=== PATIENT | female | born 1985 ===

== ENCOUNTER 2018-08-07 21:21 | Emergency (ER) | payer SELFPAY ==
[2018-08-08] MEDS ORDERED: ACETAMINOPHEN 500 MG TAB ONE (00:59)
[2018-08-08] MEDS ORDERED: IBUPROFEN 400 MG TAB ONE (00:59)
--- NOTE | 2018-08-08 01:09 | ER ---
Nurse's Notes [facility] Name: Leon Bassett Age: 33 yrs Sex: Female : 1985 Arrival Date: 08/07/2018 Time: 21:26 Bed 5 Private MD: Diagnosis: Unspecified lump in breast-left Presentation: 08/07 22:34 Presenting complaint: Patient states: "I am having a large lump in my left breast that jd3 is painful.". Transition of care: patient was not received from another setting of care. Onset of symptoms was August 06, 2018. Risk Assessment: Do you want to hurt yourself or someone else? Patient reports no desire to harm self or others. Initial Sepsis Screen: Does the patient meet any 2 criteria? No. Patient's initial sepsis screen is negative. Does the patient have a suspected source of infection? No. Patient's initial sepsis screen is negative. Care prior to arrival: None. 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 - Social history:: Smoking status: Patient/guardian denies using tobacco. - Ebola Screening: : Patient negative for fever greater than or equal to 101.5 degrees Fahrenheit, and additional compatible Ebola Virus Disease symptoms. Screenin:38 Abuse screen: Denies threats or abuse. Nutritional screening: No deficits noted. jd3 Tuberculosis screening: No symptoms or risk factors identified. Fall Risk Ambulatory Aid- None/Bed Rest/Nurse Assist (0 pts). Gait- Normal/Bed Rest/Wheelchair (0 pts) Mental Status- Oriented to own ability (0 pts). Total Kaufman Fall Scale indicates No Risk (0-24 pts). Assessment: 23:48 General: Appears in no apparent distress. comfortable, Behavior is calm, cooperative, tl2 appropriate for age. General: lump felt on left breast. No redness or drainage. Pt reports pain on palpation. Pain: Complains of pain in left breast. Neuro: Level of Consciousness is awake, alert, obeys commands, Oriented to person, place, time, situation. Cardiovascular: Denies chest pain. Respiratory: Airway is patent Respiratory effort is even, unlabored, Respiratory pattern is regular, symmetrical. GI: No signs and/or symptoms were reported involving the gastrointestinal system. : No signs and/or symptoms were reported regarding the genitourinary system. Derm: Skin is pink, warm \\T\\ dry. 08/08 02:01 Reassessment: Patient appears in no apparent distress at this time. Patient and/or tl2 family updated on plan of care and expected duration. Pain level reassessed. Patient is alert, oriented x 3, equal unlabored respirations, skin warm/dry/pink. pt verbalized understanding of discharge instructions, need for follow up and prescription usage. Vital Signs: 08/07 22:35 BP 116 / 86; Pulse 88; Resp 16 S; Temp 97.5(TE); Pulse Ox 97% on R/A; Weight 109.77 kg jd3 (R); Height 5 ft. 6 in. (167.64 cm) (R); Pain 8/10; 23:50 BP 126 / 54; Pulse 89; Resp 18; Pulse Ox 96% on R/A; tl2 22:35 Body Mass Index 39.06 (109.77 kg, 167.64 cm) jd3 ED Course: 21:26 Patient arrived in ED. ss4 22:35 Triage completed. jd3 22:38 Arm band placed on. jd3 23:42 Rosana Ramirez, LIZETH is Primary Nurse. tl2 23:48 Patient has correct armband on for positive identification. Placed in gown. Bed in low tl2 position. Call light in reach. Side rails up X 1. 08/08 00:23 Eugene Alcantara PA is PHCP. cp 00:23 Anthony Lim MD is Attending Physician. cp 01:08 Avel Motta MD is Referral Physician. cp 02:01 No provider procedures requiring assistance completed. Patient did not have IV access tl2 during this emergency room visit. Administered Medications: 01:52 Drug: Ibuprofen 800 mg Route: PO; tl2 02:02 Follow up: Response: No adverse reaction; Medication administered at discharge. tl2 01:52 Drug: Tylenol 1000 mg Route: PO; tl2 02:02 Follow up: Response: No adverse reaction; Medication administered at discharge. tl2 Outcome: 01:08 Discharge ordered by . gisselle 02:01 Discharged to home ambulatory. tl2 02:01 Condition: stable 02:01 Discharge instructions given to patient, Instructed on discharge instructions, follow up and referral plans. medication usage, Demonstrated understanding of instructions, follow-up care, medications, Prescriptions given X 1. 02:02 Patient left the ED. tl2 Signatures: Eugene Alcantara PA PA cp Knox, Taylor RN RN tl2 Eder Peñaloza RN RN jd3 Elise Queen 4
--- NOTE | 2018-08-08 01:09 | EDPHYS ---
Physician Documentation [facility] Name: Leon Bassett Age: 33 yrs Sex: Female : 1985 Arrival Date: 08/07/2018 Time: 21:26 Bed 5 Private MD: ED Physician Anthony Lim HPI: 08/08 00:28 This 33 yrs old Female presents to ER via Ambulatory with complaints of Breast Lump. cp 00:28 The patient or guardian reports chest pain that is located primarily in the left breast.cp 00:28 The pain does not radiate. Associated signs and symptoms: Pertinent negatives: nipple cp discharge, fever. 00:28 The chest pain is described as aching. cp 00:28 Duration: The patient or guardian reports a single episode, that is still ongoing. cp Modifying factors: the symptoms are aggravated by palpation of area. Patient reports noticing lump in left breast yesterday. 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 - Social history:: Smoking status: Patient/guardian denies using tobacco. - Ebola Screening: : Patient negative for fever greater than or equal to 101.5 degrees Fahrenheit, and additional compatible Ebola Virus Disease symptoms. ROS: 08/08 00:35 Constitutional: Negative for body aches, chills, fever, poor PO intake. cp 00:35 Eyes: Negative for injury, pain, redness, and discharge. cp 00:35 ENT: Negative for drainage from ear(s), ear pain, sore throat, difficulty swallowing, difficulty handling secretions. 00:35 Cardiovascular: Negative for edema, palpitations. 00:35 Respiratory: Negative for cough, shortness of breath, wheezing. 00:35 : Negative for urinary symptoms. 00:35 Skin: Positive for of the left breast, pain, mass. 00:35 All other systems are negative. Exam: 00:40 Constitutional: The patient appears in no acute distress, alert, awake, cp non-diaphoretic, non-toxic, well developed, well nourished. 00:40 Head/Face: Normocephalic, atraumatic. cp 00:40 Eyes: Periorbital structures: appear normal, Conjunctiva: normal, no exudate, no injection, Sclera: no appreciated abnormality, Lids and lashes: appear normal, bilaterally. 00:40 ENT: External ear(s): are unremarkable, Nose: is normal, Mouth: Lips: moist, Oral mucosa: moist, Posterior pharynx: is normal, airway is patent, no erythema, no exudate. 00:40 Chest/axilla: Breasts: abscess, not appreciated, cellulitis, is not appreciated, nipple discharge, is not appreciated, rash, is not appreciated, tenderness, that is moderate, of the left breast, lateral side of breast with noted tender mass, left nipple appears inverted. 00:40 Cardiovascular: Rate: normal, Rhythm: regular. 00:40 Respiratory: the patient does not display signs of respiratory distress, Respirations: normal, no use of accessory muscles, no retractions, no splinting, no tachypnea. 00:40 Skin: cellulitis, is not appreciated, no rash present. Vital Signs: 04 22:35 BP 116 / 86; Pulse 88; Resp 16 S; Temp 97.5(TE); Pulse Ox 97% on R/A; Weight 109.77 kg jd3 (R); Height 5 ft. 6 in. (167.64 cm) (R); Pain 8/10; 23:50 BP 126 / 54; Pulse 89; Resp 18; Pulse Ox 96% on R/A; tl2 22:35 Body Mass Index 39.06 (109.77 kg, 167.64 cm) jd3 MDM: 08/08 00:23 Patient medically screened. cp 00:30 Differential diagnosis: chest wall pain, breast cyst, breast cancer, lipoma, cp mastoiditis. 01:07 Data reviewed: vital signs, nurses notes, and as a result, I will discharge patient. cp 01:07 ED course: VSS. Unable to obtain US of breast at this time. Will refer to general surgery for urgent f/u. 08/08 00:28 Order name: Urine Test (obtain specimen); Complete Time: 01:52 cp 08/08 00:28 Order name: Urine Dipstick-Ancillary (obtain specimen); Complete Time: 01:52 cp Administered Medications: 01:52 Drug: Ibuprofen 800 mg Route: PO; tl2 02:02 Follow up: Response: No adverse reaction; Medication administered at discharge. tl2 01:52 Drug: Tylenol 1000 mg Route: PO; tl2 02:02 Follow up: Response: No adverse reaction; Medication administered at discharge. tl2 Disposition: 08:57 Co-signature as Attending Physician, Anthony Lim MD I agree with the assessment and wa plan of care. Disposition: 08/08/18 01:08 Discharged to Home. Impression: Unspecified lump in breast - left. - Condition is Stable. - Discharge Instructions: Breast Self-Awareness, Breast Tenderness. - Prescriptions for Ibuprofen 800 mg Oral Tablet - take 1 tablet by ORAL route every 8 hours As needed take with food; 30 tablet. - Medication Reconciliation Form, Thank You Letter, Antibiotic Education, Prescription Opioid Use form. - Follow up: Avel Motta MD; When: 1 - 2 days; Reason: Recheck today's complaints. - Problem is new. - Symptoms are unchanged. Signatures: Eugene Alcantara PA PA cp Rosaan Ramirez RN RN tl2 Anthony Lim MD MD ia Eder Peñaloza RN RN jd3 Corrections: (The following items were deleted from the chart) 02:02 01:08 08/08/2018 01:08 Discharged to Home. Impression: Unspecified lump in breast - tl2 left. Condition is Stable. Forms are Medication Reconciliation Form, Thank You Letter, Antibiotic Education, Prescription Opioid Use. Follow up: Avel Motta; When: 1 - 2 days; Reason: Recheck today's complaints. Problem is new. Symptoms are unchanged. cp
== END 2018-08-08 02:02 | disposition home or self-care (01) ==
LOC: ER 21:21
DX: N63.0 Unspecified lump in unspecified breast (principal)
CPT/HCPCS: 99283